=== PATIENT | male | born 1945 | race Caucasian/White ===

== ENCOUNTER 2017-04-10 20:03 | Inpatient (IN) | payer MEDICARE ==
[~2017-04-10] VITALS: Ht 172.7 cm; Wt 99.2 kg
[2017-04-10 20:21] VITALS: BP 127/73; PULSE 74; RESP 16; O2SAT 93
--- NOTE | 2017-04-10 22:29 | ED.REPORT ---
HPI-General Illness Date of Service Apr 10, 2017 ED Provider: Dr. Mccall 71 y/o male (on Aspirin) with a hx of HTN, prostate and rectal cancer (s/p radiation and surgery) presents to the ED complaining of hematuria, onset 4 hours ago. The pt states the urine is bright red and he didn't notice any clots. He is also experiencing mild dysuria. He denies incontinence, fever, chills and diaphoresis. While here, he developed difficulty urinating, and began to complain of significant pain. Nursing Notes Stated Complaint: BLOOD IN URINE Chief Complaint: General Complaint Nursing Notes Reviewed: Yes Allergies: Coded Allergies: No Known Allergies (Unverified , 04/10/17) General Time Seen by MD: 22:29 Chief Complaint Other (hematuria) Hx Obtained From: Patient Arrived By: Walk-in Sudden in Onset?: Yes Onset Occurred: 1 - 4 hours ago Symptom Duration: Since onset Severity: Current: No pain currently Severity: Maximum: No pain Recent Healthcare: No recent doctor visit Similar Sx Previous: No Past Medical History Past Medical History Prostate and Rectal Cancer (s/p radiation and surgery) Smoking History Unknown if Ever Smoker Social History Other Social History: Good social support Ambulatory Status Independent Review of Systems Full Review of Systems Constitutional: Denies: Chills, Fever Male: Reports Dysuria (mild), Reports Hematuria, Denies Incontinence Skin: Denies Diaphoresis Complete sys rev & neg: except as marked. Physical Exam Vital Signs Vital Signs Date Time Temp Pulse Resp B/P Pulse Ox O2 Delivery O2 Flow Rate FiO2 04/11/17 04:29 74 16 144/87 92 Room Air 04/11/17 02:04 36.7 72 16 130/74 96 Room Air 04/10/17 20:21 36.9 74 16 127/73 93 Room Air Initial VS: Reviewed, Vital signs normal Head / Eyes: Atraumatic, Normocephalic, PERRL Neck: Supple, Non-tender, Full range of motion Respiratory: Breath sounds normal, Clear to auscultation, No respiratory distress Cardiovascular: Regular rate & rhythm, Heart sounds normal, Intact distal pulses Abdomen / GI: Soft, Non-tender, No guarding, No rebound, No distention Extremities: Vascular intact, Neuro intact, No swelling, No tenderness Skin: Warm, Dry, No cyanosis Neurologic: Alert, Oriented, Nonfocal General/Constitutional: Awake, Alert, Well appearing, Not toxic appearing Appearance / Presentation: Positive: Obese Interpretation & Diagnostics Lab Results Interpretation Result Diagram: 04/11/17 0345 04/11/17 0011 Test 04/10/17 23:12 04/11/17 00:11 04/11/17 00:34 04/11/17 00:38 Urine Color Bloody (YELLOW) Urine Appearance Turbid (CLEAR,HAZY) Urine pH Color interference Urine Specific [place] >1.040 (1.003-1.035) Urine Protein Color interferencemg/dL Urine Glucose (UA) Color interferencemg/dL Urine Ketones Color interferencemg/dL Urine Occult Blood Color interference Urine Nitrite Color interference Urine Bilirubin Color interference Urine Urobilinogen Color interferencemg/dL Urine Leukocyte Esterase Color interference Urine RBC Packed/hpf (0-2) Urine WBC 0-5/hpf (0-5) Urine Epithelial Cells None/hpf (NONE-MOD) Urine Crystals None seen (NONE SEEN) Urine Bacteria None/hpf (NONE-FEW) Urine Hyaline Casts None/lpf (NONE) Urine Granular Casts None seen (NONE SEEN) Urine Waxy Casts None seen (NONE SEEN) Urine Red Blood Cell Casts Rare (NONE SEEN) Urine White Blood Cell Casts None seen (NONE SEEN) Urine Mucus None seen (None Seen) Urine Trichomonas None seen (NONE SEEN) Urine Yeast None (NONE SEEN) Urinalysis Comment Urine Culture Reflexed Not indicated White Blood Count 11.1th/mm3 (3.8-10.1) Red Blood Count 4.78mil/mm3 (4.40-5.80) Mean Corpuscular Volume 94.1fL (81-100) Mean Corpuscular Hemoglobin 32.4pg (27.0-35.0) Mean Corpuscular Hemoglobin Concent 34.4% (32.0-37.0) Red Cell Distribution Width 13.3% (12.3-15.4) Platelet Count 266bil/L (150-400) Neutrophils (%) (Auto) 71.7% (40-74) Lymphocytes (%) (Auto) 13.4% (14-46) Monocytes (%) (Auto) 9.8% (4-12) Eosinophils (%) (Auto) 4.2% (0-5) Basophils (%) (Auto) 0.4% (0-3) Prothrombin Time 10.9sec (8.1-12.5) Prothromb Time International Ratio 1.02ratio Activated Partial Thromboplast Time 26.6sec (22.8-33.0) Sodium Level 138mEq/L (134-144) Potassium Level 4.2mEq/L (3.5-5.2) Chloride Level 98mEq/L (97-108) Carbon Dioxide Level 25mmol/L (18-29) Blood Urea Nitrogen 26mg/dL (8-27) Creatinine 0.87mg/dL (0.76-1.27) Estimat Glomerular Filtration Rate 92mL/min (>59) Glucose Level 130mg/dL (60-99) Calcium Level 8.9mg/dL (8.5-10.1) Magnesium Level 2.1mg/dL (1.6-2.6) Total Bilirubin 0.5mg/dL (0.0-1.2) Aspartate Amino Transf (AST/SGOT) 17U/L (0-50) Alanine Aminotransferase (ALT/SGPT) 15U/L (0-44) Alkaline Phosphatase 90U/L (25-160) Total Protein 7.4g/dL (6.4-8.4) Albumin 4.1g/dL (3.4-5.0) Lipase 20U/L (13-60) Hold Urine Received (Received) Hold Flood Top Tube Received (Received) Test 04/11/17 03:45 Hemoglobin 15.4g/dL (13.8-17.2) Hematocrit 44.1% (41.0-50.0) Procedures Hager Catheter Time: 01:25 Procedure Performed by: Allied health pract Consent / Setup / Site Prep: Consent from patient, Hand hygiene observed, Stand sterile technique, Standard Hager site prep Hager Insertion: Urethra Size of Catheter: 24 Fr Catheter Type: 3-way genitourinary Hager Connected to: Bedside drainage bag Insertion / Complications: Insertion successful, No complications Re-Eval/Medical Decision Med Decision/Clinical Course 71-year-old man status post prostatectomy and rectal surgery for cancer, presents with progressive hematuria ultimately resulting in obstruction. A bladder scan showed 700 milliliters of urine postvoid. A triple-lumen Hager was placed and he was lavaged to clear but after about an hours pause, he is again obstructing and requiring lavage. He is admitted now to the medicine service with consultation to urology. Hemoglobin is adequate and not requiring transfusion. Time of Eval: 22:42 Re-Evaluation/Progress Note: Rehecked pt. Discussed the need for a urine and blood test. All questions answered. Time of Eval: 23:47 Re-Evaluation/Progress Note: Rechecked pt. Discussed lab results, imaging results, diagnosis and plan to discharge. Pt understands and agrees with the plan. F/U instructions and RTER warning given. All questions addressed. Time of Eval: 01:00 Re-Evaluation/Progress Note: Rechecked pt. 700cc urine retaining in the bladder. Informed the pt the need to insert a catheter. The pt understands and agrees with the plan. All questions answered. Time of Eval: 03:30 Re-Evaluation/Progress Note: Rechecked pt. Discussed plan to admit. Pt understands and agrees with the plan for admission. All questions addressed. Consultation : Referral / Consult Name: Celeste Curran DO Consulted With: Hospitalist Call Returned at: 04:38 Skin Care Specialist: Will see patient, Agrees with eval, Agrees with plan, Accepts admit Counseled Regarding: Diagnosis, Lab results, Need for admission Discharge & Departure Primary Impression: Hematuria Additional Impression: Urinary obstruction Disposition: ADMITTED TO HOSPITAL Discharge Condition All VS Reviewed: Yes Condition: Stable Referrals: OTHER,PHYSICIAN (PCP) (Family) Scribe Attestation Portions of this note were transcribed by Comfort Hearn. I, , personally performed the history, physical exam and medical decision- making;I reviewed and confirmed the accuracy of the information in the transcribed note. Signed by Og Kumar. 04/11/17 04:40 Raymon Mccall MD Apr 10, 2017 22:29 Comfort Hearn Apr 10, 2017 22:43
[2017-04-10 23:16] LABS: APPEARANCE,URINE TURBID (CLEAR,HAZY); COLOR,URINE BLOODY (YELLOW)
[2017-04-10 23:17] LABS: OCCULT BLOOD,URINE COLOR INTERFERENCE (NEGATIVE); PH,URINE COLOR INTERFERENCE (5.0-8.0); UROBILINOGEN,URINE COLOR INTERFERENCE mg/dL (NORMAL)
[2017-04-11] VITALS (9 sets, daily range): BP systolic 113–154; BP diastolic 64–90; PULSE 55–74; RESP 16–19; O2SAT 86–96
[2017-04-11 00:15] LABS: BASOPHILS % (AUTO) 0.4 % (0-3); EOSINOPHILS % (AUTO) 4.2 % (0-5); MONOCYTES % (AUTO) 9.8 % (4-12); Mean Corpuscular Hemoglobin 32.4 pg (27.0-35.0); Mean Corpuscular Volume 94.1 fL (81-100); NEUTROPHILS % (AUTO) 71.7 % (40-74); Platelet Count 266 bil/L (150-400)
[2017-04-11 00:40] LABS: INR 1.02 ratio
[2017-04-11 00:46] LABS: Magnesium 2.1 mg/dL (1.6-2.6)
[2017-04-11] MEDS: HYDROmorphone 0.5 mg/0.5 mL iSecure Syringe IVPUSH PRN ×5 (02:03→05:48)
[2017-04-11] MEDS ORDERED: Ondansetron 2 mg/mL 2 mL Inj IVPUSH PRN (05:05)
[2017-04-11] MEDS: HYDROcodone-APAP 5-325 mg Tablet PO PRN ×2 (05:49→13:04)
--- NOTE | 2017-04-11 06:33 | NUR ---
Admit Patient arrived at 0517, able to self transfer with minimal assistance to bed. A&O, prior to transfer given yellow non-slid socks. IV asymptomatic, patent. 3 way Hager not draining d/t clot. Charge nurse notified, several attempts to dislodge clot and restart free flow were unsuccessful. ER nurse notified, with her assistance the clot dislodged and we were able to get free flow once again. During this time patient pain levels were 10/10. Pain medications administered after, pt comfortable at this time. Hager draining sanguinous at full flow, with minimal drainage noted at point of entry. Balloon inflated with 20ccs. Tele monitor notified, awaiting available box. Diet NPO.
--- NOTE | 2017-04-11 06:50 | NUR ---
3 Way [address] Pt's three way morgan was not patent and draining. Morgan irrigated and clots removed. 30cc removed from balloon and morgan was re-positioned and refilled with [address]gan catheter is patent and wide open. Urine is watermelon colored. Will continue to monitor.
[2017-04-11] MEDS: Lactated Ringer's 1,000 ML IV SCH ×2 (09:05→20:18)
--- NOTE | 2017-04-11 10:01 | PCM.HPMED ---
Subjective Date of Service Apr 11, 2017 Primary Provider: Admitting Physician: Jodee Uriarte MD Primary Care Physician: Other,Physician Attending Physician: Jodee Uriarte MD Chief Complaint: gross hematuria History of Present Illness: 71 yo M w/ COPD on nocturnal home O2, hx of prostate cancer, HTN, HLD p/w sudden onset gross hematuria pt was USOH, maintain active lifestyle, denied problems of BM, urination at baseline, good appetite. Last night, pt noted to have bloody urination, difficulty of urination, came to ED. pt denied prior hematuria, had some blood when wiping out after BM but no lidia blood stools, black stools. denied n/v/ abd pain, c/d. Last BM was yesterday ED VS stable, pt began to have blood clots with bladder irrigation via 3ways, developed urinary retention. h/h showed stable 15.5/45.0, unchanged on second draw Upon interview this AM, pt denied abdominal pain, mild discomfort on suprapubic area. Dr.Hong AGUILAR was consulted. Review of Systems: Pertinent positives as noted in history of present illness. All other systems were reviewed and are negative Allergies Coded Allergies: No Known Allergies (Unverified , 04/10/17) Home Medications symbicort 160-4.5mcg daily simvastatin 10mg qd spiriva 18mcg daily [id number] qd MVI qd vitC 500mg qd trazodone 50mg qd albuterol in as needed HCTZ 25mg qd metoprolol 50mg qd aspirin 81mg qd [id number] qd propranolol 20mg qd PMH [place] war survivor exposed to orange agent, damaged lungs "it's like he has function of one lung" seborrheic keratosis adenomatoous polyp of colon anxiety insomnia actinic keratosis HLD throid nodule Surgical History Rectal cancer 2yrs ago appendectomy tonsillectomy Family History no hx of CAD, stroke, cancer Social History Hx Alcohol Use: Yes Alcoholic Drinks Per Day: 3 a weekend Hx Substance Use: No Smoking Status: Unknown if Ever Smoker Exam Vital Signs Vital Sign - Last Date Time Temp Pulse Resp B/P Pulse Ox O2 Delivery O2 Flow Rate FiO2 04/11/17 05:30 96 Nasal Cannula 2.00 04/11/17 05:20 36.6 69 19 114/75 Intake and Output 04/10/17 04/10/1717 Cumulative From/Thru 15:00 23:00 07:00 04/10/17 20:21 - 04/11/17 06:24 Intake Total 1419 ml 1419 ml Output Total 3100 ml 3100 ml Balance -1681 ml -1681 ml Intake Oral 1419 ml 1419 ml Output Urine Total 3100 ml 3100 ml Bladder Scan Volume Amount 699 # Bowel Movements 0 0 Exam comfortable, MMM, no jvd Lab and Diagnostics Result Diagram: 04/11/17 0345 04/11/17 0011 Assessment & Plan acute, active sudden onset of hematuria, POA, in the setting of hx of radiotx for prostate CA remotely, first time, possible radiation cystitis or infectious or simply triggered with chronic aspirin tx, unclear of structural chg from ?pelvic surgery. PCP record showed he has prostate CA, not rectal cancer, PSA has been stable. -appreciate input -will continue cold water bladder irrigation via 3way morgan, -serial h/h q12h -pain control with tylenol -medical record from PCP obtained in the chart -Onc radiology at [facility] cancer britt, will request record as well -awaits CT pelvis chronic, stable, chronic respiratory failure, severe COPD, POA, continue nocturnal O2, Symbicort , spiriva HTN, continue [id number], [id number], metoprolol 50mg qd, unclear why pt is also on propranolol, will hold another BB for now HLD continue statin, anxiety, continue trazodone 50mg ?chronic steroid tx, noted [id number] qd, will verify with pharmacy if this is right dose, dvt ppx: SCD dispo: pt will stay in the hospital greater than 2MN due to conditions as above Full code Time spent 65min Jodee Uriarte MD Apr 11, 2017 07:40
[2017-04-11] MEDS: Tiotropium 18mcg/Cap 5 Capsule Inhaler Kit INHALATION SCH (13:04)
--- NOTE | 2017-04-11 15:42 | DRSVH ---
PROCEDURE: CT ABDOMEN AND PELVIS WITH CONTRAST ([id number]) INDICATIONS: gross hematuria hx of rectal ca TECHNIQUE: After the administration of oral and intravenous contrast, 5 mm thick sections acquired from the diap hragms to the symphysis. 5 mm thick coronal and sagittal reformats were performed. For radiation do se reduction, the following was used: automated exposure control, adjustment of mA and/or kV accordi ng to patient size. COMPARISON: None. FINDINGS: Image quality: Excellent. ABDOMEN: Lung bases: Lung bases are clear. Heart size is normal. Solid organs: Liver and spleen are normal in size and enhancement. Gallbladder contains multiple sm all densely calcified gallstones but no common duct calculus or evidence of acute cholecystitis is fo und. Biliary system is non-dilated. Pancreas enhances normally. No adrenal nodules. Kidneys are n ormal in size and enhancement, without hydronephrosis. There are several scattered renal cortical si mple cysts incidentally noted. Peritoneum and bowel: Stomach, small bowel, and colon loops are normal in caliber and wall thickness . No free fluid or air. Nodes and vessels: No retroperitoneal or mesenteric adenopathy. Aorta and inferior vena cava are no rmal in caliber. Miscellaneous: No ventral hernias. PELVIS: Genitourinary: Bladder wall thickness is normal. A Hager catheter partially empties the bladder lum en. Multiple prostate radiation therapy seed implants are noted bilaterally at the prostate predomin antly peripherally. Miscellaneous: No inguinal hernias or adenopathy. There is what appears to be an enteric staple elizabeth e involving the mid rectum, best seen centered on series 2 image 69. No mass lesion in this area is found, no adjacent adenopathy is deemed. Bones: No suspicious bony lesions. No vertebral body compression fractures. IMPRESSION: Small densely calcified gallstones are present layering dependently within the gallbladde r lumen but no acute cholecystitis or biliary obstruction is found. There is what appears to be an enteric staple line at the mid rectum, without evidence of recurrent n eoplasm at the presumed operative bed. No adjacent adenopathy or distant metastatic disease is found . Hager catheter within the bladder lumen, no bladder mass identified. Dictated by: Cristopher Garnett M.D. on 04/11/2017 at 15:37 Approved by: Cristopher Garnett M.D. on 04/11/2017 at 15:40
[2017-04-11] MEDS: HYDROmorphone 1 mg/mL Inj IVPUSH PRN ×2 (15:58→16:22)
--- NOTE | 2017-04-11 16:01 | NUR ---
Medication IV Dilaudid 0.5 mg barcode would not scan. Medication verified and given.
[2017-04-11] MEDS ORDERED: LISI-571 PO (16:32)
[2017-04-11] MEDS ORDERED: METO25TA6 PO (16:32)
[2017-04-11] MEDS ORDERED: HYDR25TA4 PO (16:32)
[2017-04-11] MEDS ORDERED: SYMINH INHALATION (16:36)
[2017-04-11] MEDS ORDERED: ALBU8.5H2 INHALATION (16:36)
[2017-04-11 19:24] LABS: BASOPHILS % (AUTO) 0.3 % (0-3); EOSINOPHILS % (AUTO) 2.6 % (0-5); MONOCYTES % (AUTO) 11.6 % (4-12); Mean Corpuscular Hemoglobin 32.4 pg (27.0-35.0); Mean Corpuscular Volume 93.8 fL (81-100); NEUTROPHILS % (AUTO) 74.3 % (40-74); Platelet Count 243 bil/L (150-400)
--- NOTE | 2017-04-11 20:06 | CONS ---
[address] [address] CONSULTATION REPORT PATIENT: ROZINA KASPER : 1945 MR#: [id number] ADMIT: 04/11/2017 JOB ID: [id number] DATE OF SERVICE: 04/11/2017 CHIEF COMPLAINT: Gross hematuria. HISTORY OF PRESENT ILLNESS: I was asked by hospitalist, Dr. Erasmo Uriarte, to evaluate this 71-year-old male for gross hematuria. From review of outside records the patient has history of prostate cancer followed by urologist Dr. Hamilton in [place] and radiation oncologist Dr. Gilmore in [place]. The patient was diagnosed with prostate cancer in November 2014 with pathology showing Mariana 4 + 3 equals 7/10 prostatic adenocarcinoma with PSA at time of diagnosis of 7.62, with clinical stage T2c. The patient underwent external beam radiation therapy starting in January 2015 until March 2015. The patient is status post prostate brachytherapy by Dr. Gilmore in March 2015. The patient had a PSA subsequently decreasing post treatment. The patient was last seen by Dr. Gilmore in February 2017, doing well, with no evidence of disease, with PSA of 1.56, with a plan to return to clinic in six months with a PSA prior to the appointment. The patient also has a history of rectosigmoid cancer, status post low anterior resection in 2006. The patient states that yesterday evening he started having gross hematuria with clots and mild dysuria and subsequently developed difficulty voiding, with urinary urgency and inability to void in the emergency department, and developed suprapubic abdominal pain. The patient reports no nausea, no vomiting, no fever, no chills. The patient presented to the emergency department last night with gross hematuria and had a bladder scan showing 699 mL and subsequently had a Hager catheter placed which was a 24-Turkmen three-way Hager catheter at 1:25 a.m. today. The patient admitted by the hospitalist, Dr. Celeste Curran, with hospitalist Dr. Uriarte taking over care this morning. The patient presently reports no abdominal pain. No chills, no nausea, no vomiting. Hager catheter was irrigated earlier today for some clots manually by nursing staff. The patient states he has been taking aspirin 81 mg p.o. daily at home. PAST MEDICAL HISTORY: 1. COPD on home oxygen. 2. History of prostate cancer as per the HPI. 3. History of colorectal cancer as per HPI. 4. Hypertension. 5. Hyperlipidemia. 6. Anxiety. 7. Insomnia. PAST SURGICAL HISTORY: 1. Thyroid nodule. Low anterior resection as per HPI. 2. Appendectomy. 3. Tonsillectomy. 4. Brachytherapy and external beam radiation therapy as per HPI. MEDICATIONS: Present hospital medications: Hydrochlorothiazide, lisinopril, Advair, Lopressor, Tylenol p.r.n., Dilaudid IV p.r.n., Spiriva, Zofran p.r.n., [place] p.r.n. ALLERGIES: No known drug allergies. SOCIAL HISTORY: Social alcohol use. No substance abuse. FAMILY HISTORY: Noncontributory. REVIEW OF SYSTEMS: Constitutional: No fever, no chills. GI: No nausea, no vomiting. PHYSICAL EXAMINATION: Vital signs: Afebrile since admission. Vital signs presently temperature 36.6 degrees Celsius. Heart rate 55, respiratory rate 18, BP 152/82, O2 sat 95% on 2 L nasal cannula. General: Well-developed, well-nourished male in no acute distress. HEENT: Head: Normocephalic, atraumatic. Eyes: Extraocular muscles intact. Neck: Supple. Chest: No use of accessory muscles. Nonlabored respirations. No retractions. Abdomen: Soft, nondistended, nontender. No palpable masses. No rebound, no guarding. : Penis normal. No lesions. Urethral meatus normal. Testes bilaterally descended. No masses. Scrotum normal. Hager catheter in place draining light blood-tinged drainage on moderate to fast continuous bladder irrigation. The continuous bladder irrigation was decreased to a moderate rate with the Hager catheter seen to continue to drain light blood-tinged drainage. Hager catheter left to continuous bladder irrigation. Skin: Warm and dry. Neurologic: Sensation grossly intact to touch. Normal speech. Psych: Alert and oriented x3. Normal mood and affect. LABORATORIES: At 12:11 a.m. today white blood cell count 11.1, hematocrit 45.0, platelets 266. PT, INR, and PTT within normal limits. Sodium 138, potassium 4.2, chloride 98, CO2 of 25, BUN 26, creatinine 0.87, glucose 130. Today at 3:45 a.m. hematocrit 44.1. On April 10, 2017, urinalysis showed packed red blood cells, 0-5 white blood cells. From review of outside records: In July 2015 PSA 1.28. In January 2016 PSA 1.35. In July 2016 PSA 1.44. In February 2017 PSA 1.56. IMAGING: CT scan of the abdomen and pelvis with IV and p.o. contrast today showed no renal masses, no hydronephrosis. Several simple renal cysts. No lymphadenopathy. Hager catheter in place. No metastatic disease. My review also showed no renal or ureteral calculi. ASSESSMENT: Gross hematuria and clot urinary retention, status post Hager catheter placement last night and Hager catheter irrigation, with gross hematuria improving on continuous bladder irrigation. Also with history of prostate cancer status post external beam radiation therapy which was completed in March 2015 and status post prostate brachytherapy in March 2015 with PSA low at 1.56 in February 2017. Also with history of colorectal cancer status post low anterior resection in 2006. Also with CT scan today showing no renal masses, no renal or ureteral calculi, no hydronephrosis, no lymphadenopathy, and no evidence for metastatic disease. The gross hematuria is likely secondary to a history of external beam radiation therapy and brachytherapy with the patient on aspirin. I anticipate that gross hematuria should improve with conservative management including continuous bladder irrigation and IV and p.o. hydration. PLAN: Recommend continuing Hager catheter to continuous bladder irrigation for now. Recommended irrigating Hager catheter manually as needed for bloody urine, clots, and/or nondraining Hager catheter. The patient was advised to avoid any strenuous exercise, strenuous activity, moderate or heavy lifting more than 10 pounds, and straining including straining for bowel movements during this hospitalization and after he is discharged home. Recommend following laboratories, including hematocrit. Recommend starting Flomax, which I have ordered. Recommend starting antibiotics, which I have ordered with Cipro. The patient will need cystoscopy to evaluate the bladder, which likely can be done as an outpatient. I recommend holding blood thinning medications. The patient has been started on a heart healthy diet. Recommend continuing IV fluid hydration and encouraging p.o. fluid hydration.
[2017-04-11] MEDS: Fluticasone-Salmeterol 500-50 Inhaler INHALATION SCH (21:44)
[2017-04-12] VITALS (7 sets, daily range): BP systolic 115–142; BP diastolic 60–76; PULSE 66–83; RESP 18; O2SAT 96–97
[2017-04-12] MEDS: HYDROcodone-APAP 5-325 mg Tablet PO PRN ×2 (04:22→13:10)
--- NOTE | 2017-04-12 05:23 | NUR ---
3 way morgan/irrigation Dr. Dahl saw pt last night, and adjusted pts 3-way morgan and it drained clear watermelon colored for the first 4 hours of the shift. after that pt clotted once and was irrigated and it went back to a watermelon color and pt was able to go back to sleep. however this morning pt began clotting frequently. he was irrigated several times and multiple very large clots were passed. at this time pts irrigation changed to wide open to prevent further clots. pt was given pain medication and is now resting comfortably.
[2017-04-12 05:44] LABS: BASOPHILS % (AUTO) 0.2 % (0-3); EOSINOPHILS % (AUTO) 3.3 % (0-5); Mean Corpuscular Hemoglobin 32.7 pg (27.0-35.0); Mean Corpuscular Volume 94.3 fL (81-100); NEUTROPHILS % (AUTO) 75.2 % (40-74); Platelet Count 238 bil/L (150-400)
[2017-04-12] MEDS: Lactated Ringer's 1,000 ML IV SCH ×3 (06:08→21:03)
[2017-04-12] MEDS: Fluticasone-Salmeterol 500-50 Inhaler INHALATION SCH ×2 (09:03→21:36)
[2017-04-12] MEDS: Tiotropium 18mcg/Cap 5 Capsule Inhaler Kit INHALATION SCH (09:04)
--- NOTE | 2017-04-12 10:20 | PCM.PNMED ---
Subjective Date of Service Apr 12, 2017 Subjective pt is doing well, bladder irrigation continued, urine almost cleared but started to have clots again [employer] pt denied pain, n/v, started flomax and cipro per Exam Vital Signs Vital Sign - Last Date Time Temp Pulse Resp B/P Pulse Ox O2 Delivery O2 Flow Rate FiO2 04/12/17 09:08 Supplement Oxygen 04/12/17 08:35 36.3 83 18 116/67 96 2.00 Intake and Output 04/11/17 04/11/17 04/12/17 Cumulative From/Thru 15:00 23:00 07:00 04/10/17 20:21 - 04/12/17 06:26 Intake Total 200 ml 1040 ml 2659 ml Output Total 600 ml 3700 ml Balance 200 ml 440 ml -1041 ml Intake Oral 200 ml 1040 ml 2659 ml Output Urine Total 600 ml 3700 ml # Bowel Movements 0 0 Exam comfortable, NAD MMM, no JVD RRR, nls1 s21 no mrg CTAB no w,c S,ND,NT.BS+ warm, no edema; 3way morgan in place bladder irrigation continued IVs and Medications Medications Reviewed: Medications were reviewed in detail Lab and Diagnostics Result Diagram: 04/12/1744504/12/17 0446 Assessment & Plan acute, active Sudden onset of gross hematuria, POA, likely related to previous radio tx and aspirin tx. CT pelvis was unremarkable for other structural abnormalities. -clinically improving, resolving hematuria -appreciate follow up -will continue cold water bladder irrigation via 3way morgan, -serial h/h qd -pain control with tylenol -continue flomax, ciprofloxacin #History of prostate cancer s/p external beam radiation therapy, prostate brachytherapy in 2014, no metastasis from previous w/u -outpatient follow up with Oncology at [facility] chronic, stable, chronic respiratory failure, severe COPD, POA, continue nocturnal O2, Symbicort , spiriva HTN, continue [id number], [id number], metoprolol 50mg qd, unclear why pt is also on propranolol, will hold another BB for now HLD continue statin, anxiety, continue trazodone 50mg ?chronic steroid tx, noted [id number] qd, will verify with pharmacy if this is right dose, dvt ppx: SCD dispo:likely one more day, home no need Full code VTE Mechanical Devices: Intermittant Pneumatic CD Time spent 35min Jodee Uriarte MD Apr 12, 2017 10:20
--- NOTE | 2017-04-12 14:46 | NUR ---
Social Work- Initial Assessment/ Readiness for Discharge Data: See Initial Assessment. Pt is a 71 year old male admitted 04/11/17 for hematuria urinary obstruction per H&P. Pt is not medically stable for discharge, pt continues to have hematuria. Pt's insurance is [facility] [place] Medicare and pt's PCP is Hardeep Mi MD at [facility]. Pt's NOK and designated support person is LILA Nielsen [phone]. Pt's readmit risk score is 4- high risk. SW met with pt and SO at bedside regarding discharge plan, SW role explained. Pt alert and oriented x3. Pt resides in [place] with his SO where he uses no DME and is independent at baseline. Pt drives. Pt has no HH or SNF history. Pt has no LTC insurance. Pt has [facility] benefits with a 100% service connection. Pt receives o2 to use at night through the [facility]. Pt's base flow rate at night is 3L. Pt was on room air during this assessment. Pt receives his prescriptions through the [facility] but if pt were to discharge with any new medication pt's confirmed they would bill his MCR and obtain his scripts through [email or web address]. SW requested pt bring in completed DPOA paperwork. SW provided phone number and plan on whiteboard. Pt to discharge home with SO to transport via POV. No discharge needs identified at this time. SW will continue to follow. Assessment: Pt who is independent at baseline. Plan: Pt anticipated to discharge home with SO to transport via POV. No discharge needs identified at this time. SW will continue to follow. CHERYL Awad Addendum: 04/12/17 at 1454 by TERENCE CABALLERO Amended: Links added.
--- NOTE | 2017-04-12 18:26 | NUR ---
Morgan/Irrigation Pt had episode of clots in morgan while up to the [facility]. Morgan irrigated and irrigation running. Pt up to the [facility]cl[employer] for dinner. Tolerated activity well.
[2017-04-13] MEDS: HYDROcodone-APAP 5-325 mg Tablet PO PRN (00:21)
[2017-04-13] MEDS: Lactated Ringer's 1,000 ML IV SCH ×3 (01:25→21:15)
--- NOTE | 2017-04-13 04:27 | NUR ---
Morgan Irrigation Pt ambulated to bed from chair with steady gait. Pt had episode of clots with 3 way morgan. Irrigated and cleared. Pt experienced extreme pain 8/10 at that time and was given vicodin with + effects. Pt 3 way morgan, bladder irrigation is patent draining pink tinged urine/fluid. Care continues
[2017-04-13 05:27] VITALS: PULSE 77
[2017-04-13 05:31] VITALS: BP 124/72; PULSE 68; RESP 18; O2SAT 97
[2017-04-13 05:34] LABS: BASOPHILS % (AUTO) 0.4 % (0-3); EOSINOPHILS % (AUTO) 3.4 % (0-5); MONOCYTES % (AUTO) 11.4 % (4-12); Platelet Count 216 bil/L (150-400)
[2017-04-13 08:00] VITALS: PULSE 73
[2017-04-13 08:55] VITALS: BP 117/66; PULSE 89; RESP 18; O2SAT 93
[2017-04-13] MEDS: Tiotropium 18mcg/Cap 5 Capsule Inhaler Kit INHALATION SCH (09:22)
[2017-04-13] MEDS: Fluticasone-Salmeterol 500-50 Inhaler INHALATION SCH ×2 (09:22→19:59)
[2017-04-13 13:20] VITALS: BP 104/67; PULSE 69; RESP 16; O2SAT 94
--- NOTE | 2017-04-13 15:46 | NUR ---
ORA Signed @ 1240PM
--- NOTE | 2017-04-13 16:36 | PCM.PNMED ---
Subjective Date of Service Apr 13, 2017 Subjective pt remained stable, h/h mildly dropped some clots this AM, but getting cleared. rate of irrigation decreased per Exam Vital Signs Vital Sign - Last Date Time Temp Pulse Resp B/P Pulse Ox O2 Delivery O2 Flow Rate FiO2 04/13/17 13:20 37.0 69 16 104/67 94 Room Air 04/13/17 05:31 2.00 Intake and Output 04/12/17 04/12/17 04/13/17 Cumulative From/Thru 15:00 23:00 07:00 04/10/17 20:21 - 04/13/17 06:46 Intake Total 4233 ml 1654 ml 8546 ml Output Total 3000 ml 3800 ml 56100 ml Balance 1233 ml -2146 ml -1954 ml Intake Oral 1260 ml 600 ml 4519 ml IV Total 2973 ml 1054 ml 4027 ml Output Urine Total 3000 ml 3800 ml 08419 ml # Bowel Movements 0 0 Exam comfortable, NAD MMM, no JVD RRR, nls1 s21 no mrg CTAB no w,c S,ND,NT.BS+ warm, no edema; 3way morgan in place bladder irrigation continued IVs and Medications Medications Reviewed: Medications were reviewed in detail Lab and Diagnostics Result Diagram: 04/13/17 0511 04/12/17 0446 Assessment & Plan acute, active Sudden onset of gross hematuria, POA, likely related to previous radio tx and aspirin tx. CT pelvis was unremarkable for other structural abnormalities. -clinically improving, resolving hematuria -appreciate follow up, tentative plan to d/c tomorrow per discussion today. -will continue cold water bladder irrigation via 3way morgan, -serial h/h qd -pain control with tylenol -continue flomax, ciprofloxacin #History of prostate cancer s/p external beam radiation therapy, prostate brachytherapy in 2014, no metastasis from previous w/u -outpatient follow up with Oncology at [facility] chronic, stable, chronic respiratory failure, severe COPD, POA, continue nocturnal O2, Symbicort , spiriva HTN, continue [id number], [id number], metoprolol 50mg qd, unclear why pt is also on propranolol, will hold another BB for now HLD continue statin, anxiety, continue trazodone 50mg dvt ppx: SCD dispo:likely one more day, please discuss with , home no need Full code ADDENDUM>as per , plan to continue slow irrigation by tomorrow mammography tech, then stop irrigation if remains clear, then d/c morgan, and d/c home with cipro, flomax, colace, avoid strenuous activity, valsalva, blood thinner, Please follow up note from as well. VTE Mechanical Devices: Intermittant Pneumatic CD Time spent 35min Jodee Uriarte MD Apr 13, 2017 16:36
--- NOTE | 2017-04-13 18:51 | NUR ---
Hager Irrigation Hager has been draining pale yellow all shift. Talked with Dr. Dahl and irrigation was turned down to barely flowing. Output is still pale yellow in color. Patient has denied pain all shift. No sight of clots in urine. Per Dr. Dahl will continue very slow irrigation through the night and order to stop irrigation at 0700 tomorrow.
[2017-04-13 21:09] VITALS: BP 146/63; PULSE 99; RESP 18; O2SAT 98
[2017-04-14 00:31] VITALS: BP 100/62; PULSE 89; RESP 16; O2SAT 93
--- NOTE | 2017-04-14 01:40 | NUR ---
Activity On initial assessment, patient was standing up at bedside. No complaints of dizziness. Patient has no complaints of pain. VSS. 3 way Hager draining vandana colored urine with intermittent pink tinged urine. Irrigation will be stopped at 0700 per MD orders. Call light within reach. Care continues.
[2017-04-14 05:40] VITALS: BP 124/71; PULSE 72; RESP 16; O2SAT 95
[2017-04-14 05:51] VITALS: PULSE 94
[2017-04-14] MEDS: Lactated Ringer's 1,000 ML IV SCH (06:30)
[2017-04-14 06:48] LABS: BASOPHILS % (AUTO) 0.3 % (0-3); Mean Corpuscular Hemoglobin 32.6 pg (27.0-35.0); Mean Corpuscular Volume 96.1 fL (81-100); NEUTROPHILS % (AUTO) 66.2 % (40-74); Platelet Count 235 bil/L (150-400)
[2017-04-14 08:26] VITALS: PULSE 87
[2017-04-14 08:57] VITALS: BP 122/73; PULSE 93; RESP 19; O2SAT 93
[2017-04-14] MEDS: Fluticasone-Salmeterol 500-50 Inhaler INHALATION SCH (09:00)
[2017-04-14] MEDS: Tiotropium 18mcg/Cap 5 Capsule Inhaler Kit INHALATION SCH (09:00)
[2017-04-14] MEDS ORDERED: TAMS0.4C98 PO (10:27)
[2017-04-14] MEDS ORDERED: CIPR-231 PO (10:27)
[2017-04-14] MEDS ORDERED: TIOT18CA3 INHALATION (10:27)
[2017-04-14] MEDS ORDERED: HYDR-4003 PO (10:27)
[2017-04-14] MEDS ORDERED: ASPI-973 PO (10:30)
[2017-04-14] MEDS ORDERED: Docusate Sodium PO (10:32)
--- NOTE | 2017-04-14 10:50 | PCM.DIMED ---
Discharge Instructions Date of Service Apr 14, 2017 Dates of Hospitalization Apr 11, 2017 at 04:44 Discharge Diagnosis Discharge Diagnosis Sudden onset of gross hematuria History of prostate cancer chronic respiratory failure, severe COPD HTN HLD anxiety Diet Discharge Diet: No restrictions Activity Discharge Activity: No restrictions Call your provider Call your provider for: Fever or Chills, Shortness of breath, Bleeding, Chest pain, Vomitting, Excessive diarrhea, Weakness (unilateral) Patient Instructions Follow-up Provider: Guzman Mi MD Follow-up with PCP in: 1 week Provider: Dayo Dahl MD Follow-up in: 1 week Nancie Mortensen MD Apr 14, 2017 10:28
--- NOTE | 2017-04-14 11:21 | NUR ---
Social Work: Discharge D: EMR reviewed. Pt is on day 3 of hospitalization. Per MD in AM multi-disciplinary rounds, pt is medically stable and will discharge today. Pt to discharge home with SO to transport via POV. No discharge needs identified at this time. SW will continue to follow. A: Pt who is independent at baseline. P: Pt to discharge home today with SO to transport via POV. No discharge needs identified at this time. SW will continue to follow. CHERYL Rivera
--- NOTE | 2017-04-14 12:11 | PCM.DC.MED ---
Discharge Summary Date of Service Apr 14, 2017 Dates of Hospitalization Date of Hospital Admission Apr 11, 2017 at 04:44 Date of Discharge: Apr 14, 2017 Providers: Admitting Physician: Jodee Uriarte MD Primary Care Physician: Other,Physician Attending Physician: Loren Mortensen MD Diagnosis at Time of Discharge Diagnosis at Time of Discharge Sudden onset of gross hematuria History of prostate cancer chronic respiratory failure, severe COPD HTN HLD anxiety Consultations [address] [address] CONSULTATION REPORT PATIENT: ROZINA KASPER : 1945 MR#: [id number] ADMIT: 04/11/2017 JOB ID: [id number] DATE OF SERVICE: 04/11/2017 CHIEF COMPLAINT: Gross hematuria. HISTORY OF PRESENT ILLNESS: I was asked by hospitalist, Dr. Erasmo Uriarte, to evaluate this 71-year-old male for gross hematuria. From review of outside records the patient has history of prostate cancer followed by urologist Dr. Hamilton in [place] and radiation oncologist Dr. Gilmore in [place]. The patient was diagnosed with prostate cancer in November 2014 with pathology showing [place] 4 + 3 equals 7/10 prostatic adenocarcinoma with PSA at time of diagnosis of 7.62, with clinical stage T2c. The patient underwent external beam radiation therapy starting in January 2015 until March 2015. The patient is status post prostate brachytherapy by Dr. Gilmore in March 2015. The patient had a PSA subsequently decreasing post treatment. The patient was last seen by Dr. Gilmore in February 2017, doing well, with no evidence of disease, with PSA of 1.56, with a plan to return to clinic in six months with a PSA prior to the appointment. The patient also has a history of rectosigmoid cancer, status post low anterior resection in 2006. The patient states that yesterday evening he started having gross hematuria with clots and mild dysuria and subsequently developed difficulty voiding, with urinary urgency and inability to void in the emergency department, and developed suprapubic abdominal pain. The patient reports no nausea, no vomiting, no fever, no chills. The patient presented to the emergency department last night with gross hematuria and had a bladder scan showing 699 mL and subsequently had a Morgan catheter placed which was a 24-Sami three-way Morgan catheter at 1:25 a.m. today. The patient admitted by the hospitalist, Dr. Celeste Curran, with hospitalist Dr. Uriarte taking over care this morning. The patient presently reports no abdominal pain. No chills, no nausea, no vomiting. Morgan catheter was irrigated earlier today for some clots manually by nursing staff. The patient states he has been taking aspirin 81 mg p.o. daily at home. PAST MEDICAL HISTORY: 1. COPD on home oxygen. 2. History of prostate cancer as per the HPI. 3. History of colorectal cancer as per HPI. 4. Hypertension. 5. Hyperlipidemia. 6. Anxiety. 7. Insomnia. PAST SURGICAL HISTORY: 1. Thyroid nodule. Low anterior resection as per HPI. 2. Appendectomy. 3. Tonsillectomy. 4. Brachytherapy and external beam radiation therapy as per HPI. MEDICATIONS: Present hospital medications: Hydrochlorothiazide, lisinopril, Advair, Lopressor, Tylenol p.r.n., Dilaudid IV p.r.n., Spiriva, Zofran p.r.n., [place] p.r.n. ALLERGIES: No known drug allergies. SOCIAL HISTORY: Social alcohol use. No substance abuse. FAMILY HISTORY: Noncontributory. REVIEW OF SYSTEMS: Constitutional: No fever, no chills. GI: No nausea, no vomiting. PHYSICAL EXAMINATION: Vital signs: Afebrile since admission. Vital signs presently temperature 36.6 degrees Celsius. Heart rate 55, respiratory rate 18, BP 152/82, O2 sat 95% on 2 L nasal cannula. General: Well-developed, well-nourished male in no acute distress. HEENT: Head: Normocephalic, atraumatic. Eyes: Extraocular muscles intact. Neck: Supple. Chest: No use of accessory muscles. Nonlabored respirations. No retractions. Abdomen: Soft, nondistended, nontender. No palpable masses. No rebound, no guarding. : Penis normal. No lesions. Urethral meatus normal. Testes bilaterally descended. No masses. Scrotum normal. Morgan catheter in place draining light blood-tinged drainage on moderate to fast continuous bladder irrigation. The continuous bladder irrigation was decreased to a moderate rate with the Morgan catheter seen to continue to drain light blood-tinged drainage. Morgan catheter left to continuous bladder irrigation. Skin: Warm and dry. Neurologic: Sensation grossly intact to touch. Normal speech. Psych: Alert and oriented x3. Normal mood and affect. LABORATORIES: At 12:11 a.m. today white blood cell count 11.1, hematocrit 45.0, platelets 266. PT, INR, and PTT within normal limits. Sodium 138, potassium 4.2, chloride 98, CO2 of 25, BUN 26, creatinine 0.87, glucose 130. Today at 3:45 a.m. hematocrit 44.1. On April 10, 2017, urinalysis showed packed red blood cells, 0-5 white blood cells. From review of outside records: In July 2015 PSA 1.28. In January 2016 PSA 1.35. In July 2016 PSA 1.44. In February 2017 PSA 1.56. IMAGING: CT scan of the abdomen and pelvis with IV and p.o. contrast today showed no renal masses, no hydronephrosis. Several simple renal cysts. No lymphadenopathy. Morgan catheter in place. No metastatic disease. My review also showed no renal or ureteral calculi. ASSESSMENT: Gross hematuria and clot urinary retention, status post Morgan catheter placement last night and Morgan catheter irrigation, with gross hematuria improving on continuous bladder irrigation. Also with history of prostate cancer status post external beam radiation therapy which was completed in March 2015 and status post prostate brachytherapy in March 2015 with PSA low at 1.56 in February 2017. Also with history of colorectal cancer status post low anterior resection in 2006. Also with CT scan today showing no renal masses, no renal or ureteral calculi, no hydronephrosis, no lymphadenopathy, and no evidence for metastatic disease. The gross hematuria is likely secondary to a history of external beam radiation therapy and brachytherapy with the patient on aspirin. I anticipate that gross hematuria should improve with conservative management including continuous bladder irrigation and IV and p.o. hydration. PLAN: Recommend continuing Morgan catheter to continuous bladder irrigation for now. Recommended irrigating Morgan catheter manually as needed for bloody urine, clots, and/or nondraining Morgan catheter. The patient was advised to avoid any strenuous exercise, strenuous activity, moderate or heavy lifting more than 10 pounds, and straining including straining for bowel movements during this hospitalization and after he is discharged home. Recommend following laboratories, including hematocrit. Recommend starting Flomax, which I have ordered. Recommend starting antibiotics, which I have ordered with Cipro. The patient will need cystoscopy to evaluate the bladder, which likely can be done as an outpatient. I recommend holding blood thinning medications. The patient has been started on a heart healthy diet. Recommend continuing IV fluid hydration and encouraging p.o. fluid hydration. Dayo Dahl MD 04/11/17 190 Procedures XRay, CTs & MRIs [facility] Diagnostic Imaging Department [place], [place] [id number] Patient Name: ROZINA KASPER MR#: [id number] Location: [facility] Ordering Phys: Jodee Uriarte MD Date of Service: 04/11/17 0840 PROCEDURE: CT ABDOMEN AND PELVIS WITH CONTRAST ([id number]) INDICATIONS: gross hematuria hx of rectal ca TECHNIQUE: After the administration of oral and intravenous contrast, 5 mm thick sections acquired from the diaphragms to the symphysis. 5 mm thick coronal and sagittal reformats were performed. For radiation dose reduction, the following was used : automated exposure control, adjustment of mA and/or kV according to patient size. COMPARISON: None. FINDINGS: Image quality: Excellent. ABDOMEN: Lung bases: Lung bases are clear. Heart size is normal. Solid organs: Liver and spleen are normal in size and enhancement. Gallbladder contains multiple small densely calcified gallstones but no common duct calculus or evidence of acute cholecystitis is found. Biliary system is non-dilated. Pancreas enhances normally. No adrenal nodules. Kidneys are normal in size and enhancement, without hydronephrosis. There are several scattered renal cortical simple cysts incidentally noted. Peritoneum and bowel: Stomach, small bowel, and colon loops are normal in caliber and wall thickness. No free fluid or air. Nodes and vessels: No retroperitoneal or mesenteric adenopathy. Aorta and inferior vena cava are normal in caliber. Miscellaneous: No ventral hernias. PELVIS: Genitourinary: Bladder wall thickness is normal. A Morgan catheter partially empties the bladder lumen. Multiple prostate radiation therapy seed implants are noted bilaterally at the prostate predominantly peripherally. Miscellaneous: No inguinal hernias or adenopathy. There is what appears to be an enteric staple line involving the mid rectum, best seen centered on series 2 image 69. No mass lesion in this area is found, no adjacent adenopathy is deemed. Bones: No suspicious bony lesions. No vertebral body compression fractures. IMPRESSION: Small densely calcified gallstones are present layering dependently within the gallbladder lumen but no acute cholecystitis or biliary obstruction is found. There is what appears to be an enteric staple line at the mid rectum, without evidence of recurrent neoplasm at the presumed operative bed. No adjacent adenopathy or distant metastatic disease is found. Morgan catheter within the bladder lumen, no bladder mass identified. Dictated by: Cristopher Garnett M.D. on 04/11/2017 at 15:37 Approved by: Cristopher Garnett M.D. on 04/11/2017 at 15:40 Brief History 71 yo M w/ COPD on nocturnal home O2, hx of prostate cancer, HTN, HLD p/w sudden onset gross hematuria pt was USOH, maintain active lifestyle, denied problems of BM, urination at baseline, good appetite. Last night, pt noted to have bloody urination, difficulty of urination, came to ED. pt denied prior hematuria, had some blood when wiping out after BM but no lidia blood stools, black stools. denied n/v/ abd pain, c/d. Last BM was yesterday ED VS stable, pt began to have blood clots with bladder irrigation via 3ways, developed urinary retention. h/h showed stable 15.5/45.0, unchanged on second draw Upon interview this AM, pt denied abdominal pain, mild discomfort on suprapubic area. Dr.Hong AGUILAR was consulted. Hospital Course Sudden onset of gross hematuria, POA, likely related to previous radio tx and aspirin tx. CT pelvis was unremarkable for other structural abnormalities. -clinically improving, resolving hematuria -appreciate follow up and will discharge today per yesterday's plan. -He did well on cold water bladder irrigation via 3way morgan, -serial h/h qd. The hemoglobin is actually up to 12.6 today. -pain control with tylenol -continue flomax, ciprofloxacin #History of prostate cancer s/p external beam radiation therapy, prostate brachytherapy in 2014, no metastasis from previous w/u -outpatient follow up with Oncology at [facility], stable, chronic respiratory failure, severe COPD, POA, continue nocturnal O2, Symbicort , spiriva HTN, continue [id number], [id number], metoprolol 50mg qd, unclear why pt is also on propranolol HLD continue statin, anxiety, continue trazodone 50mg As per conversation yesterday, plan to continue slow irrigation by this morning, then stop irrigation if remains clear, which it has, then d/c morgan, and d/c home with cipro, flomax, colace, avoid strenuous activity, valsalva, blood thinner. Exam Vital Signs (Last) Date Time Temp Pulse Resp B/P Pulse Ox O2 Delivery O2 Flow Rate FiO2 04/14/17 08:57 36.2 93 19 122/73 93 Room Air 04/14/17 05:40 2.00 Exam Alert and oriented 3, no apparent distress. Heart is regular rate and rhythm without murmur Lungs are clear to auscultation bilaterally Extremities have no ankle edema Test 04/10/17 23:12 04/11/17 00:11 04/11/17 00:34 04/11/17 00:38 Urine Color Bloody (YELLOW) Urine Appearance Turbid (CLEAR,HAZY) Urine pH Color interference Urine Specific [place] >1.040 (1.003-1.035) Urine Protein Color interferencemg/dL Urine Glucose (UA) Color interferencemg/dL Urine Ketones Color interferencemg/dL Urine Occult Blood Color interference Urine Nitrite Color interference Urine Bilirubin Color interference Urine Urobilinogen Color interferencemg/dL Urine Leukocyte Esterase Color interference Urine RBC Packed/hpf (0-2) Urine WBC 0-5/hpf (0-5) Urine Epithelial Cells None/hpf (NONE-MOD) Urine Crystals None seen (NONE SEEN) Urine Bacteria None/hpf (NONE-FEW) Urine Hyaline Casts None/lpf (NONE) Urine Granular Casts None seen (NONE SEEN) Urine Waxy Casts None seen (NONE SEEN) Urine Red Blood Cell Casts Rare (NONE SEEN) Urine White Blood Cell Casts None seen (NONE SEEN) Urine Mucus None seen (None Seen) Urine Trichomonas None seen (NONE SEEN) Urine Yeast None (NONE SEEN) Urinalysis Comment Urine Culture Reflexed Not indicated Prothrombin Time 10.9sec (8.1-12.5) Prothromb Time International Ratio 1.02ratio Activated Partial Thromboplast Time 26.6sec (22.8-33.0) Magnesium Level 2.1mg/dL (1.6-2.6) Total Bilirubin 0.5mg/dL (0.0-1.2) Aspartate Amino Transf (AST/SGOT) 17U/L (0-50) Alanine Aminotransferase (ALT/SGPT) 15U/L (0-44) Alkaline Phosphatase 90U/L (25-160) Total Protein 7.4g/dL (6.4-8.4) Albumin 4.1g/dL (3.4-5.0) Lipase 20U/L (13-60) Hold Urine Received (Received) Hold Flood Top Tube Received (Received) Test 04/12/17 04:46 04/14/17 05:02 Sodium Level 137mEq/L (134-144) Potassium Level 3.9mEq/L (3.5-5.2) Chloride Level 97mEq/L (97-108) Carbon Dioxide Level 29mmol/L (18-29) Blood Urea Nitrogen 12mg/dL (8-27) Creatinine 0.60mg/dL (0.76-1.27) Estimat Glomerular Filtration Rate 142mL/min (>59) Glucose Level 103mg/dL (60-99) Calcium Level 8.4mg/dL (8.5-10.1) White Blood Count 8.8th/mm3 (3.8-10.1) Red Blood Count 3.87mil/mm3 (4.40-5.80) Hemoglobin 12.6g/dL (13.8-17.2) Hematocrit 37.2% (41.0-50.0) Mean Corpuscular Volume 96.1fL (81-100) Mean Corpuscular Hemoglobin 32.6pg (27.0-35.0) Mean Corpuscular Hemoglobin Concent 33.9% (32.0-37.0) Red Cell Distribution Width 13.2% (12.3-15.4) Platelet Count 235bil/L (150-400) Neutrophils (%) (Auto) 66.2% (40-74) Lymphocytes (%) (Auto) 16.2% (14-46) Monocytes (%) (Auto) 13.0% (4-12) Eosinophils (%) (Auto) 4.0% (0-5) Basophils (%) (Auto) 0.3% (0-3) Discharge Medications Discharge Medications ([Docusate Sodium]) 250 MG CAPSULE 250 MG PO BID Prescribed by: ADDIE MORTENSEN MD Aspirin (Aspirin) 81 Mg Tablet 81 MG PO DAILY Prescribed by: ADDIE MORTENSEN MD Budesonide/Formoterol 160-4.5 mcg Inh (Symbicort 160-4.5 mcg Inh) 120 Puff Inhaler 2 PUFF INHALATION BID (Reported) Ciprofloxacin (Cipro) 500 Mg Tablet 500 MG PO BID Prescribed by: ADDIE MORTENSEN MD Hydrochlorothiazide (Hydrochlorothiazide) 25 Mg Tablet 25 MG PO BID (Reported) Lisinopril (Lisinopril) 5 Mg Tablet 5 MG PO DAILY (Reported) Metoprolol Tartrate (Metoprolol Tartrate) 25 Mg Tablet 25 MG PO BID (Reported) Tamsulosin (Flomax) 0.4 Mg Capsule 0.4 MG PO DAILY Prescribed by: ADDIE MORTENSEN MD Tiotropium [place] (Spiriva) 18 Mcg Cap.w.dev 18 MCG INHALATION DAILY Prescribed by: ADDIE MORTENSEN MD As needed Albuterol HFA (Proair HFA) 8.5 Gm Hfa.aer.ad 2 PUFFS INHALATION Q4H PRN PRN For Shortness of Breath (Reported) Hydrocodone-Acetaminophen 5-325 mg (Hydrocodone-Acetaminophen 5-325 mg) 1 Each Tablet 2 TABLET PO Q4 PRN PRN For Moderate Pain Prescribed by: ADDIE MORTENSEN MD Followup Plan Discharge Diet: No restrictions Discharge Activity: No restrictions Follow-up Provider: Guzman Mi MD Follow-up with PCP in: 1 week Provider: Dayo Dahl MD Follow-up in: 1 week Nancie Mortensen MD Apr 14, 2017 10:51
--- NOTE | 2017-04-14 14:02 | NUR ---
Discharge Note Pt has denied any pain today, ambulating to the bathroom with SBA, steady on his feet. Pt verbalized understanding of all discharge instructions, medications/Rx, and follow up appts. Care notes provided. Pt ready to discharge home with all belongings, waiting for ride home from .
== END 2017-04-14 14:31 | disposition home or self-care (01) | DRG 699 ==
LOC: SED 20:03 → OSC 04-11 04:44
PROVIDERS: ADMIT Internal Medicine; ATTEND Internal Medicine
DX: N30.41 Irradiation cystitis with hematuria (principal); J96.10 Chronic respiratory failure, unspecified whether with hypoxia or hypercapnia; N13.9 Obstructive and reflux uropathy, unspecified; J44.9 Chronic obstructive pulmonary disease, unspecified; I10 Essential (primary) hypertension; E78.5 Hyperlipidemia, unspecified; Z85.048 Personal history of other malignant neoplasm of rectum, rectosigmoid junction, and anus; Z79.82 Long term (current) use of aspirin; Z85.46 Personal history of malignant neoplasm of prostate; Z99.81 Dependence on supplemental oxygen